=== PATIENT | male | born 1975 | race Caucasian/White ===

== ENCOUNTER → 2016-11-05 | Outpatient (CLI) | payer BC ==
[~2016-11-05] MED LIST: CIPR-255 PO; HYDR-5688 PO; HYDR25TA4 PO; IBUP-103 PO; PHEN-876 PO; POTASSIUM CITRATE PO
--- NOTE | 2016-11-05 13:32 | DIAGNOSTIC IMAGING REPORT ---
[facility] CLINICAL HISTORY: Nephrolithiasis COMPARISON STUDY: Outside radiograph dated 09/07/2016 FINDINGS: There are multiple bilateral intrarenal calculi. These number in excess of 10 on the right, and in excess of 5 on the left. The largest calculus in the left measures 6 mm. The largest calculus of the right measures 6 mm. No calcifications along the course of either ureter are visualized. There is no pathologic bowel dilatation. IMPRESSION: Bilateral nephrolithiasis. Electronically signed by: Hao Mckeon M.D. 11/05/2016 1:30 PM
== END | disposition home or self-care (01) ==
LOC: C.RAD 12:38
PROVIDERS: ATTEND Nurse Practitioner Family
DX: N20.0 Calculus of kidney (principal)

== ENCOUNTER → 2016-12-04 | Day surgery (SDC) | payer BC ==
[2016-11-23 15:07] VITALS: BMI 23.0
--- NOTE | 2016-11-23 15:34 | PAT Medication Instructions ---
Service Date Nov 23, 2016. Current Home Medication List Hydrochlorothiazide (Hctz), 25 MG PO QAM Ibuprofen Tab (Advil), 400 MG PO PRN [Potassium Citrate], 15 MEQ PO QAM Medication Instructions For Your Scheduled Surgery - Hold the following medications the morning of surgery: Hydrochlorothiazide (Hctz), 25 MG PO QAM Ibuprofen Tab (Advil), 400 MG PO PRN [Potassium Citrate], 15 MEQ PO QAM Nothing to eat or drink after midnight. No chewing after midnight If you have any questions please call us at [phone] (Lisa Leon PA-C) or [phone] or [phone]
--- NOTE | 2016-11-23 16:05 | DIAGNOSTIC IMAGING REPORT ---
CHEST PREADMISSION(PA/LAT) CLINICAL HISTORY: Preoperative chest COMPARISON STUDY: No previous studies for comparison. FINDINGS: The cardiac and mediastinal contours are normal. There is no evidence of focal pulmonary consolidation. There is no evidence of failure. No pleural effusions are visualized.[ IMPRESSION: No active disease in the chest. Electronically signed by: Hao Mckeon M.D. 11/23/2016 4:03 PM Dictated Date/Time: 11/23/2016 4:02 PM
[2016-11-23 16:30] LABS: URINE APPEARANCE CLEAR (CLEAR); URINE BILIRUBIN NEG (NEG); URINE COLOR YELLOW; URINE NITRITE NEG (NEG); URINE SPECIFIC GRAVITY 1.023 (1.000-1.030); UROBILINOGEN NEG (NEG)
[2016-11-23 16:30] LABS: BASO % 0.2 %; BASO ABS # 0.02 K/uL (0-0.2); COMPLETE YES; EOS % 0.1 %; IG% 0.3 %; LYMPH % 27.1 %; MEAN CELL VOLUME 89.5 fL (80-100); MEAN CORPUSCULAR HEMOGLOBIN 33.4 pg (25-34); MEAN CORPUSCULAR HGB CONC 37.3 g/dl (32-36); MEAN PLATELET VOLUME 9.4 fL (7.4-10.4); MONO % 7.2 %; NEUT % 65.1 %; PLATELET COUNT 235 K/uL (130-400); RED BLOOD COUNT 5.03 M/uL (4.7-6.1); WHITE BLOOD COUNT 11.42 K/uL (4.8-10.8)
[2016-11-23 16:33] LABS: MANUAL MICROSCOPIC REQUIRED? NO; REVIEW REQ? NO
[2016-11-23 17:01] LABS: BUN/CREATININE RATIO 21.8 (10-20); CALCIUM 9.4 mg/dl (8.5-10.1); POTASSIUM 3.5 mmol/L (3.5-5.1)
[~2016-12-04] VITALS: Ht 165.1 cm; Wt 65.0 kg
[~2016-12-04] MED LIST changes: +ATROPINE SULFATE 0.1 MG/ML 5ML SYR IV PRN; +CHECK SCOPOLAMINE PATCH PLACEMENT SCH; +CIPROFLOXACIN / D5W 400 MG IV SCH; +CONRAY 30% 150ML BOTTLE INSTIL ONE; +DEXAMETHASONE SOD INJ 4 MG/ML VIAL ONE; +EpHEDrine SULFATE INJ 50 MG/ML AMP IV PRN; +FENTANYL CITRATE INJ 50 MCG/1 ML 2 ML VIAL IV PRN; +FENTANYL CITRATE INJ 50 MCG/1 ML 2 ML VIAL ONE; +HYDROCODONE/ACETAMOPHEN 5/325MG TAB PO PRN; +HYDROmorphone INJ 1 MG/ML SYR IV PRN; +HYDROmorphone INJ 1 MG/ML SYR ONE; +LACTATED RINGER'S 1000ML IV SCH; +LIDOCAINE HCL 2% 2 ML VIAL (20MG/ML) ONE; +MIDAZOLAM HCL 1 MG/ML 2ML VIAL ONE; +ONDANSETRON INJ 2 MG/ML 2 ML VIAL IV PRN; +ONDANSETRON INJ 2 MG/ML 2 ML VIAL ONE; +PROPOFOL IV EMULSION 10 MG/ML 20 ML VIAL IV ONE; +SCOPOLAMINE 1.5 MG TDSY TD SCH; +SODIUM CHLORIDE 0.9% 1000ML 1,000 ML IV SCH
[2016-12-04 09:44] VITALS: BMI 23.0
[2016-12-04 09:48] VITALS: BP 123/81; PULSE 67; TEMP 36.7; Ht 165.1 cm; Wt 65.0 kg
--- NOTE | 2016-12-04 10:52 | History & Physical Bridge Note ---
H&P Re-Evaluation Bridge Note: I have examined the patient, reviewed the History & Physical and in the interval since the performance of the History & Physical I have noted the following changes of clinical significance: No changes noted
--- NOTE | 2016-12-04 12:16 | [facility] Post Operative Brief Note ---
Immediate Operative Summary Operative Date Dec 04, 2016. Pre-Operative Diagnosis Right ureteral stones Post-Operative Diagnosis Same and preoperative diagnosis Procedure(s) Performed Right Cystoscopy, Ureteroscopy, Laser Lithotripsy; Stent (6Fx26) Surgeon Dr Marie Unleavened Dough Mixer Surgeon(s) none Estimated Blood Loss 5 Findings numerous stones (6+) within the right kidney - all fragmented to small pieces (< 1mm) Specimens none Drains [id number] Anesthesia gen Complication(s) None Disposition Recovery Room / PACU (stable)
--- NOTE | 2016-12-04 12:20 | Discharge Instructions ---
Discharge Instructions Admission Reason for Admission: Stones Discharge Discharge Diagnosis / Problem: 12/04/16 Discharge Goals Goal(s): Decrease discomfort, Improve function, Increase independence, Improve disease control Activity Recommendations Activity Limitations: resume your previous activity Lifting Limitations: none Exercise/Sports Limitations: none May Resume Sexual Activity: when tolerated Shower/Bathe: no limitations Driving or Machine Use: no limitations . Instructions / Follow-Up Instructions / Follow-Up Please come to Dr. Marie's office on Saturday, December 10 at 11:35AM to have your stent removed. Discharge Diet Recommended Diet: Regular Diet Procedures Procedures Performed: Right Cystoscopy, Ureteroscopy, Laser Lithotripsy; Stent (6Fx26) Pending Studies Studies pending at discharge: no Medical Emergencies . Who to Call and When: Medical Emergencies: If at any time you feel your situation is an emergency, please call 911 immediately. . Non-Emergent Contact Non-Emergency issues call your: Urologist Call Non-Emergent contact if: you have a fever, temperature is above 101.5, your pain is not controlled, your pain is worsening, your pain is concerning you . . "Provider Documentation" section prepared by Davin Beckham. VTE Core Measure Inpt VTE Proph given/why not?: Treatment not indicated [place] Drug Monitoring Program Search Results: patient reviewed within database, no issues identified
--- NOTE | 2016-12-04 12:23 | DIAGNOSTIC IMAGING REPORT ---
Retrograde pyelogram RETROGRADE INCLUDES [facility] CLINICAL HISTORY: RT CYSTOSCOPY/STENT stent placement TECHNIQUE: Image intensifier COMPARISON STUDY: None FINDINGS: No films applied IMPRESSION: Image intensifier for a stent placement Electronically signed by: Chemo Mahan M.D. 12/04/2016 12:21 PM Dictated Date/Time: 12/04/2016 12:21 PM
--- NOTE | 2016-12-04 14:02 | Anesthesiology Progress Note ---
Anesthesia Post Op Note Date & Time Dec 04, 2016 at 14:01 Vital Signs Pain Intensity: 5.0 Vital Signs Past 12 Hours Date Time Temp Pulse Resp B/P Pulse Ox O2 Delivery O2 Flow Rate FiO2 12/04/16 13:45 70 20 126/87 97 Nasal Cannula 2 12/04/16 13:35 72 20 131/91 97 Nasal Cannula 2 12/04/16 13:25 79 12 138/91 88 Room Air 12/04/16 13:15 64 13 134/96 96 Room Air 12/04/16 13:05 62 16 136/99 95 Room Air 12/04/16 12:55 76 12 140/96 94 Room Air 12/04/16 12:45 70 14 142/103 100 Mask 10 12/04/16 12:36 36.1 92 14 154/97 100 Mask 10 12/04/16 09:48 36.7 67 17 123/81 Room Air Notes Mental Status: alert / awake / arousable, participated in evaluation Pt Amnestic to Procedure: Yes Nausea / Vomiting: adequately controlled Pain: adequately controlled Airway Patency, RR, SpO2: stable & adequate BP & HR: stable & adequate Hydration State: stable & adequate Anesthetic Complications: no major complications apparent
[2016-12-04 14:10] VITALS: BP 138/66; PULSE 76; TEMP 36.6; O2SAT 96
[2016-12-04 14:40] VITALS: BP 132/92; PULSE 82; O2SAT 97
--- NOTE | 2016-12-04 15:09 | OPERATIVE REPORT ---
DATE OF OPERATION: 12/04/2016 PREOPERATIVE DIAGNOSIS: Right renal calculi. POSTOPERATIVE DIAGNOSIS: Right renal calculi. PROCEDURE PERFORMED: Cystoscopy, right ureteroscopy, right laser lithotripsy, right retrograde pyelogram, and right ureteral stent placement 6-Armenian x 26 cm. ANESTHESIA: General. ESTIMATED BLOOD LOSS: 5 mL. URINE OUTPUT: Not recorded. SPECIMENS: None. COMPLICATIONS: There were no complications. DESCRIPTION OF THE PROCEDURE: Casper Rivera was identified in the preoperative holding area. Appropriate informed consents were reviewed and completed and the patient was transported to the operating suite. Upon arrival, he received appropriate preoperative antibiotics in the form of ciprofloxacin. Adequate general anesthesia was achieved and the patient was placed in dorsal lithotomy position where he was sterilely prepped and draped in standard fashion. I began the case by passing a 22-Armenian cystoscope and 30 degree lens. Inspection of the urethra revealed no evidence of stricture disease or other abnormality. Inspection of the bladder revealed healthy appearing bladder mucosa without any tumors or other abnormalities. Ureteral orifices were in orthotopic position. Following my inspection, I cannulated the right ureteral orifice with a sensor wire and a 10-Armenian double lumen catheter. I then subsequently placed a second wire through the second working catheter. I withdrew the 10-Armenian double lumen catheter and passed a flexible fiberoptic ureteroscope to the level of the kidney. There was no resistance with passage. Full renoscopy was carried out. Approximately 6-7 stones were identified. These were found in the upper, mid and lower pole of the kidney. The largest was in the mid pole and was readily visible on fluoroscopy. The next largest stone was in the lower pole and that was additionally a very visible on fluoroscopy. There were several other stones that were not as readily apparent on fluoroscopy and were somewhat smaller in size. I passed a 400 micron laser fiber and I sequentially moved my way to the kidney trying to fragment all these stones. I made sure to be everything smaller than half of 1 mm. After treating all the stones that I encountered, I performed a repeat ureteroscopy and saw no other large retained fragments. I then performed a very careful exit ureteroscopy seeing no stones within the ureter. Additionally, there was no trauma to the ureter. To conclude the case, I repassed a 10-Armenian double lumen catheter over one of the safety wires and performed retrograde pyelogram. Following confirmation of no extravasation or injury, I withdrew the 10-Armenian double lumen catheter and placed a 6-Armenian 26 cm double-J stent into the upper pole of the kidney. There was good curl seen in the kidney as well as the bladder. Case was subsequently concluded and the patient was extubated and taken to the PACU in stable condition. I attest to the content of the Intraoperative Record and any orders documented therein. Any exceptio ns are noted below.
[2016-12-04 15:12] VITALS: BP 126/90; PULSE 74; TEMP 36.7; O2SAT 97
[2016-12-04 15:40] VITALS: BP 128/86; PULSE 71; TEMP 36.7; O2SAT 97
== END | disposition home or self-care (01) ==
LOC: C.ACU 09:07
PROVIDERS: ATTEND Urology
DX: N20.0 Calculus of kidney (principal); Z87.442 Personal history of urinary calculi; Z98.890 Other specified postprocedural states; Z90.49 Acquired absence of other specified parts of digestive tract

== ENCOUNTER → 2017-02-05 | Outpatient (CLI) | payer BC ==
[~2017-02-05] MED LIST changes: -ATROPINE SULFATE 0.1 MG/ML 5ML SYR IV PRN; -CHECK SCOPOLAMINE PATCH PLACEMENT SCH; -CIPROFLOXACIN / D5W 400 MG IV SCH; -CONRAY 30% 150ML BOTTLE INSTIL ONE; -DEXAMETHASONE SOD INJ 4 MG/ML VIAL ONE; -EpHEDrine SULFATE INJ 50 MG/ML AMP IV PRN; -FENTANYL CITRATE INJ 50 MCG/1 ML 2 ML VIAL IV PRN; -FENTANYL CITRATE INJ 50 MCG/1 ML 2 ML VIAL ONE; -HYDROCODONE/ACETAMOPHEN 5/325MG TAB PO PRN; -HYDROmorphone INJ 1 MG/ML SYR IV PRN; -HYDROmorphone INJ 1 MG/ML SYR ONE; -LACTATED RINGER'S 1000ML IV SCH; -LIDOCAINE HCL 2% 2 ML VIAL (20MG/ML) ONE; -MIDAZOLAM HCL 1 MG/ML 2ML VIAL ONE; -ONDANSETRON INJ 2 MG/ML 2 ML VIAL IV PRN; -ONDANSETRON INJ 2 MG/ML 2 ML VIAL ONE; -PROPOFOL IV EMULSION 10 MG/ML 20 ML VIAL IV ONE; -SCOPOLAMINE 1.5 MG TDSY TD SCH; -SODIUM CHLORIDE 0.9% 1000ML 1,000 ML IV SCH
--- NOTE | 2017-02-05 13:35 | DIAGNOSTIC IMAGING REPORT ---
RENAL ULTRASOUND CLINICAL HISTORY: Right flank pain. Nephrolithiasis. COMPARISON STUDY: Renal ultrasound July 16, 2016 and KUB November 05, 2016. TECHNIQUE: Sonography of the kidneys and the urinary bladder was performed. FINDINGS: The right kidney measures 11.8 cm in maximal dimension and the left measures 10.9 cm. There is no hydronephrosis. Multiple bilateral renal calculi measure up to 8 mm. There is a 9 mm left renal cyst. Both ureteral jets were identified. There is mild renal cortical thinning. IMPRESSION: 1. No hydronephrosis. 2. Bilateral nephrolithiasis. Electronically signed by: Jet Ferrer M.D. 02/05/2017 1:34 PM Dictated Date/Time: 02/05/2017 1:30 PM
== END | disposition home or self-care (01) ==
PROVIDERS: ATTEND Nurse Practitioner Adult Health
DX: N20.0 Calculus of kidney (principal)